=== PATIENT | female | born 1965 | race Caucasian/White ===

== ENCOUNTER 2017-11-23 20:24 | Emergency (ER) | payer BC ==
[2017-11-23 20:46] VITALS: BP 152/88
--- NOTE | 2017-11-23 20:53 | UC ---
Bite Injury/Animal HPI - HPI Summary HPI Summary: 52 y/o female presents to the urgent care c/o Acclimating a cat to her home and she frightened it and he scratched her face. Cat was obtained through the [facility] and is up to date with all vaccinations. - History of Current Complaint Chief Complaint: UCGeneralIllness Stated Complaint: CAT SCRATCH AND BITES Time Seen by Provider: 11/23/17 20:48 Hx Obtained From: Patient Hx Last Menstrual Period: 11/06/18 Pain Intensity: 3 - Allergies/Home Medications Allergies/Adverse Reactions: Allergies Allergy/AdvReac Type Severity Reaction Status Date / Time No Known Allergies Allergy Verified 11/23/17 20:46 Home Medications: Home Medications Sertraline* [Zoloft*] 200 mg PO DAILY 11/23/17 [History Confirmed 11/23/17] PMH/Surg Hx/FS Hx/Imm Hx - Surgical History Surgical History: Yes Surgery Procedure, Year, and Place: 2X C SECTIONS - Social History Alcohol Use: Occasionally Substance Use Type: None Smoking Status (MU): Never Smoked Tobacco - Immunization History Most Recent Tetanus Shot: unknown Physical Exam Vital Signs: Initial Vital Signs Temp 98.0 F 11/23/17 20:39 Pulse 69 11/23/17 20:39 Resp 19 11/23/17 20:39 BP 152/88 11/23/17 20:39 Pulse Ox 100 11/23/17 20:39 Bite Injury Course/Dx - Differential Dx/Diagnosis Differential Diagnosis/HQI/PQRI: Cellulitis, Laceration, Puncture, Rabies Exposure, Superficial Infection, Deep Space Infection Provider Diagnoses: 1- facial cat scratches. 2- Elevated BP w/o Hx of HTN Discharge - Sign-Out/Discharge Documenting (check all that apply): Patient Departure - D/c home All imaging exams completed and their final reports reviewed: No Studies - Discharge Plan Condition: Stable Disposition: HOME Prescriptions: Amoxicillin/Clavulanate TAB* [Augmentin TAB 875*] 875 mg PO BID #19 tab Bacitracin OINTMENT* 1 applic TOPICAL BID #1 tube Patient Education Materials: Animal Bite (ED), Low-Sodium Diet (ED), Acute Wound Care (ED) Referrals: Ildefonso Bunn MD [Primary Care Provider] - 3 Days Additional Instructions: 1-You were given Tdap vaccine today/ 2- Please take the full course of the antibiotic to avoid resistance. First dose given tonight 3-Please take ibuprofen PO q6-8hrs prn as instructed after meals to alleviate pain and swelling. 4- Apply Bacitracin oint on affected area as directed 5-If symptoms do not improve or worsen please return to the urgent care or f/u with your PCP 3 days for further evaluation and treatment. 6-Your BP is elevated today. please decrease salt in your diet, monitor BP and if it continues to be elevated please f/u with your PCP for further management - Billing Disposition and Condition Condition: STABLE Disposition: Home
[2017-11-23] MEDS ORDERED: Tetan/Diph/Pertus SYR(Tdap)* 0.5 ML SYR(BOOSTRIX) use SYR IM ONE (21:04)
[2017-11-23] MEDS ORDERED: Amoxicillin/Clavulanate TAB* 875 MG PO ONE (21:04)
== END 2017-11-23 21:54 | disposition home or self-care (01) ==
LOC: UCEAST 20:24
DX: S00.81XA Abrasion of other part of head, initial encounter (principal); W55.03XA Scratched by cat, initial encounter; Y93.89 Activity, other specified; Y92.009 Unspecified place in unspecified non-institutional (private) residence as the place of occurrence of the external cause; Z23 Encounter for immunization; R03.0 Elevated blood-pressure reading, without diagnosis of hypertension
CPT/HCPCS: 90471; 90715; 99212; A9270-GY; G0463